=== PATIENT | male | born 1975 | race Caucasian/White ===

== ENCOUNTER 2021-08-01 02:38 | Emergency (ER) | payer BC ==
[2021-08-01] MEDS ORDERED: Cephalexin 500 MG Cap PO ONE ×2 (02:39→04:28)
[2021-08-01 03:34] LABS: ANION GAP 15.2 mEq/L (7-13); CHLORIDE,CL 106 mmol/L (98-107); ESTIMATED GFR 53; SODIUM,NA 143 mmol/L (136-145)
[2021-08-01] MEDS ORDERED: Cephalexin 500 MG Cap ONE (04:30)
[2021-08-01 06:38] VITALS: BP 133/84; PULSE 97
== END 2021-08-01 04:55 | disposition home or self-care (01) ==
LOC: DL.ED 02:38
DX: S02.2XXA Fracture of nasal bones, initial encounter for closed fracture (principal); S00.03XA Contusion of scalp, initial encounter; Y04.2XXA Assault by strike against or bumped into by another person, initial encounter
CPT/HCPCS: 36415; 70450; 70486; 72125; 80053; 80307; 85025; 99284; A9270